=== PATIENT | female | born 2000 | race Caucasian/White ===

== ENCOUNTER 2025-02-23 06:53 | Emergency (ER) | payer MEDICAID ==
[2025-02-23 08:09] LABS: A/G RATIO 1.3 (0.9-1.6); ALBUMIN 3.9 g/dL (3.4-5.0); BILIRUBIN TOTAL 0.4 mg/dL (0.2-1.0); CALCIUM 8.5 mg/dL (8.5-10.1); CARBON DIOXIDE,CO2 29.6 mmol/L (21.0-32.0); CREATININE 0.9 mg/dL (0.6-1.0); EST CRCL DRUG DOSING (CG) 88.68 mL/min; POTASSIUM,K 3.9 mmol/L (3.5-5.1)
[2025-02-23 08:53] LABS: HEMATOCRIT 38.3 % (37.0-47.0); HEMOGLOBIN 12.7 g/dL (12.0-16.0)
[2025-02-23 09:14] LABS: BASOPHILS ABSOLUTE AUTO 0.06 K/uL (0.00-0.20); BASOPHILS PERCENT AUTO 0.9 % (0.0-1.0); EOSINOPHILS ABSOLUTE AUTO 0.37 K/uL (0.00-0.45); EOSINOPHILS PERCENT AUTO 5.3 % (0.0-6.0); IMMATURE GRAN ABSOLUTE AUTO 0.02 K/uL (0.00-0.05); IMMATURE GRAN PERCENT AUTO 0.3 % (0.0-0.4); LYMPHOCYTES ABSOLUTE AUTO 1.86 K/uL (1.00-4.80); LYMPHOCYTES PERCENT AUTO 26.5 % (24.0-44.0); MEAN CORPUSCULAR HEMOGLOBIN 28.5 pg (28.0-32.0); MEAN CORPUSCULAR VOLUME 83.8 fL (83.0-99.0); MEAN PLATELET VOLUME 9.9 fL (9.4-12.3); MONOCYTES ABSOLUTE AUTO 0.48 K/uL (0.00-0.80); MONOCYTES PERCENT AUTO 6.8 % (0.0-8.0); NEUTROPHILS ABSOLUTE AUTO 4.22 K/uL (1.80-7.70); NEUTROPHILS PERCENT AUTO 60.2 % (41.0-71.0); PLATELET COUNT,PLT 297 K/uL (150-400); RED BLOOD CELL COUNT 4.52 M/uL (4.10-5.30); WHITE BLOOD CELL COUNT,WBC 7.01 K/uL (3.9-11.3)
== END 2025-02-23 09:25 | disposition home or self-care (01) ==
LOC: MW.ED 06:53
DX: K62.5 Hemorrhage of anus and rectum (principal)
CPT/HCPCS: 36415; 80053; 81025; 85025; 99283; 99284

== ENCOUNTER 2025-05-05 20:46 | Emergency (ER) | payer MEDICAID | END 2025-05-05 22:25 | disposition home or self-care (01) | LOC: MW.ED 20:46 | DX: L02.415 Cutaneous abscess of right lower limb (principal); L03.115 Cellulitis of right lower limb; Z88.0 Allergy status to penicillin | CPT/HCPCS: 96372; 99283; A9270; J2270; 99282 ==

== ENCOUNTER 2025-05-06 21:49 | Emergency (ER) | payer MEDICAID ==
[2025-05-06] MEDS: Ketorolac 30 MG/ML SDV IM ONE (22:18)
== END 2025-05-06 22:23 | disposition home or self-care (01) ==
LOC: MW.ED 21:49
DX: L03.115 Cellulitis of right lower limb (principal); Z88.0 Allergy status to penicillin; Z79.899 Other long term (current) drug therapy
CPT/HCPCS: 96372; 99283; J1885; 99282

== ENCOUNTER 2025-05-12 13:34 | Emergency (ER) | payer MEDICAID ==
[2025-05-12 16:09] LABS: APPEARANCE,URINE CLEAR; GLUCOSE,URINE NEGATIVE (NEGATIVE); OCCULT BLOOD,URINE NEGATIVE (NEGATIVE)
[2025-05-12 17:05] LABS: CANDIDA DNA PROBE NEGATIVE (NEGATIVE); GARDNERELLA DNA PROBE NEGATIVE (NEGATIVE); TRICHOMONAS DNA PROBE NEGATIVE (NEGATIVE)
[2025-05-12 17:44] LABS: C. TRACHOMATIS BY PCR NOT DETECTED; N. GONORRHOEAE BY PCR NOT DETECTED
== END 2025-05-12 17:20 | disposition left against medical advice (07) ==
LOC: MW.ED 13:34
DX: Z76.0 Encounter for issue of repeat prescription (principal); Z88.0 Allergy status to penicillin; Z79.899 Other long term (current) drug therapy
CPT/HCPCS: 81003; 81025; 87480; 87491; 87510; 87591; 87660; 99283

== ENCOUNTER 2025-08-07 08:47 | Emergency (ER) | payer MEDICAID ==
[2025-08-07] MEDS: Ondansetron 4 MG Tab.DIS PO ONE (08:59)
== END 2025-08-07 09:37 | disposition home or self-care (01) ==
LOC: MW.ED 08:47
DX: M79.642 Pain in left hand (principal); Z88.0 Allergy status to penicillin
CPT/HCPCS: 73130; 99283; A9270